=== PATIENT | female | born 1960 | race Caucasian/White ===

== ENCOUNTER 2024-03-29 21:49 | Emergency (ER) | payer SELFPAY ==
[2024-03-29] VITALS (9 sets, daily range): BP systolic 105–140; BP diastolic 55–73; PULSE 80–92; RESP 14–23; TEMP 36.3; O2SAT 99–100; BMI 26.4
--- NOTE | 2024-03-29 23:15 | PC.NURSE ---
Per EMS BG was 71 @ 2155. EMS had multiple attempts at IV placement with no success. Nursing staff continues to establish IV. BG checked upon arrival at 2200 with BG of 64. Pt given 1x apple juice by mouth. @ 2250 BG 63. IV placed and order obtained for IV dextrose, see OCT.
[2024-03-29 23:18] LABS: Add Manual Diff / Slide Review NO; Basophils Absolute Auto 0 /uL (0-100); Basophils Percent Auto 0.2 % (0-2); Eosinophils Absolute Auto 200 /uL (0-450); Eosinophils Percent Auto 1.1 % (2-4); Hematocrit 25.6 % (36-46); Hemoglobin 8.6 g/dL (12.0-16.0); Lymphocytes Absolute Auto 2200 /uL (1100-4500); Lymphocytes Percent Auto 13.6 % (25-40); Mean Corpuscular HGB Conc 33.5 % (30-36); Mean Corpuscular Volume 77.7 fL (80-100); Monocytes Absolute Auto 1500 /uL (0-900); Monocytes Percent Auto 9.2 % (3-14); Neutrophils Absolute Auto 12400 /uL (1500-7000); Neutrophils Percent Auto 75.9 % (50-75); Platelet Count 606 X10^3/uL (150-400); Red Blood Cell Count 3.29 X10^6/uL (4.0-5.2); Red Cell Distribution Width 15.8 % (11.6-14.8); White Blood Cell Count 16.3 X10^3/uL (4.5-11.0)
[2024-03-29] MEDS: DEXTROSE 50 % IN WATER 25 GM/50 ML SYRINGE IV (23:25)
[2024-03-29 23:31] LABS: Alanine Aminotransferase 17 IU/L (<35); Albumin 3.6 g/dL (3.5-5.0); Albumin Globulin Ratio 0.9 (1.0-2.8); Alkaline Phosphatase 131 U/L (38-126); Aspartate Aminotransferase 20 IU/L (14-36); BUN Creatinine Ratio 10.9 (6-22); Bilirubin Total 0.6 mg/dL (0.2-1.3); Blood Urea Nitrogen 14 mg/dL (7-17); Calcium 8.8 mg/dL (8.4-10.2); Carbon Dioxide 19 mmol/L (22-32); Chloride 97 mmol/L (98-107); Estimated Glomerular Filt Rate 47 mL/min (>60); Glucose 62 mg/dL (80-110); HEMOLYSIS < 15 (0-50); Sodium 128 mmol/L (137-145); Total Protein 7.6 g/dL (6.3-8.2)
[2024-03-29 23:44] LABS: Lactate (Lactic Acid) 1.2 mmol/L (0.7-2.1)
[2024-03-30] VITALS (12 sets, daily range): BP systolic 93–124; BP diastolic 53–63; PULSE 78–91; RESP 14–26; O2SAT 98–100
[2024-03-30 00:02] LABS: Thyroid Stimulating Hormone 0.719 uIU/mL (0.47-4.68)
--- NOTE | 2024-03-30 00:43 | ED_ITS ---
HPI - Weakness General Chief complaint: Weakness Stated complaint: gen weakness Time Seen by Provider: 03/29/24 22:16 Source: patient and EMS Mode of arrival: EMS History of Present Illness HPI Narrative: 64-year-old female recently released from [facility] admission she states for worsening kidney function, has new left-sided nephrostomy tube placed that she believes will be taken out in 2 weeks at , history of diabetes taking her oral medications, after recent hospital discharge has had low blood sugar readings and generalized weakness. No seizure activity. She denies diarrhea. She denies fevers or chills. She denies shortness of breath. She denies pain or redness or rash or dishcarge from the new left nephrostomy site. Denies increasing flank pain. Related Data Home Medications Medication Instructions Recorded Confirmed atorvastatin 20 mg tablet 20 mg PO QPM 03/29/24 03/29/24 fluoxetine 20 mg tablet 20 mg PO DAILY 03/29/24 03/29/24 glipizide 10 mg tablet, extended 20 mg PO QAM 03/29/24 03/29/24 release 24 hr levofloxacin 750 mg tablet 750 mg PO DAILY 03/29/24 03/29/24 metformin 1,000 mg tablet 1,000 mg PO BID 03/29/24 03/29/24 methocarbamol 500 mg tablet 500 mg PO 03/29/24 metronidazole 500 mg tablet 500 mg PO Q8H 03/29/24 03/29/24 pioglitazone 45 mg tablet 45 mg PO DAILY 03/29/24 03/29/24 Allergies Allergy/AdvReac Type Severity Reaction Status Date / Time No Known Drug Allergies Allergy Verified 03/29/24 23:28 Review of Systems Review of Systems Narrative: see HPI Patient History Social History Smoking Status: Never smoker Smoking Status: Never smoker Substance Use Type: does not use Exam Narrative Exam Narrative: GENERAL: Well-developed patient, in mild distress. HEAD: Atraumatic. Normocephalic. EYES: Pupils equal round and reactive. Extraocular motions intact. No scleral icterus. No injection or drainage. ENT: Nose without bleeding, purulent drainage. Throat without erythema, tonsillar hypertrophy or exudate. Airway patent. NECK: Trachea midline. Non tender CARDIOVASCULAR: Regular rate and rhythm without murmurs, gallops, or rubs. RESPIRATORY: Clear to auscultation. Breath sounds equal bilaterally. No wheezes, rales, or rhonchi. GASTROINTESTINAL: Abdomen soft, non-tender, nondistended. EXTREMITIES: No edema or joint tenderness. BACK: Nontender without deformity or crepitance. No flank tenderness. Left nephrostomy tube, left flank area skin exit site appears normal without redness or swelling or discharge. NEURO: AOx3. Nonfocal neuro exam SKIN: No rash or erythema of visible areas Initial Vital Signs Initial Vital Signs: Vital Signs Pulse Rate 88 03/29/24 21:54 Blood Pressure 125/73 03/29/24 21:54 Pulse Oximetry 100 03/29/24 21:54 Course Orders Ordered: Discontinued Medications Dextrose (Dextrose 25 % In Water 2.5 Gm/10 Ml Syringe) 2.5 gm IV NOW ONE Stop: 03/29/24 23:13 Last Admin: 03/29/24 23:37 Dose: Not Given Documented By: BIANCA Dextrose (Dextrose 50 % In Water 25 Gm/50 Ml Syringe) 12.5 gm IV NOW ONE Stop: 03/29/24 23:38 Last Admin: 03/29/24 23:25 Dose: 12.5 gm Documented By: BIANCA Vital Signs Vital signs: Vital Signs - 8 hr 03/29/24 21:54 03/29/24 21:54 03/29/24 22:00 Temperature Pulse Rate 88 90 Respiratory Rate Blood Pressure 125/73 Pulse Oximetry 100 100 Oxygen Delivery Method Room Air 03/29/24 22:00 03/29/24 22:03 03/29/24 22:30 Temperature 97.3 F L Pulse Rate 92 H 80 Respiratory Rate 19 17 Blood Pressure 126/62 125/73 Pulse Oximetry 100 99 Oxygen Delivery Method Room Air 03/29/24 22:30 03/29/24 23:00 03/29/24 23:24 Temperature Pulse Rate 90 84 Respiratory Rate 14 23 Blood Pressure 140/72 Pulse Oximetry 100 99 Oxygen Delivery Method Room Air 03/29/24 23:24 03/29/24 23:30 03/29/24 23:40 Temperature Pulse Rate 82 83 Respiratory Rate 17 18 Blood Pressure 112/56 L Pulse Oximetry 99 99 Oxygen Delivery Method Room Air Room Air 03/29/24 23:40 Temperature Pulse Rate Respiratory Rate Blood Pressure 105/55 L Pulse Oximetry Oxygen Delivery Method MDM - Weakness Lab Data Attestation: I reviewed the patient's lab results. 03/29/24 23:05 03/29/24 23:05 Labs: Lab Results 03/29/24 Range/Units 23:05 WBC 16.3 H (4.5-11.0) X10^3/uL RBC 3.29 L (4.0-5.2) X10^6/uL Hgb 8.6 L (12.0-16.0) g/dL Hct 25.6 L (36-46) % MCV 77.7 L (80-100) fL MCH 26.0 (26-34) PG MCHC 33.5 (30-36) % RDW 15.8 H (11.6-14.8) % Plt Count 606 H (150-400) X10^3/uL Neut % (Auto) 75.9 H (50-75) % Lymph % (Auto) 13.6 L (25-40) % [place] % (Auto) 9.2 (3-14) % Eos % (Auto) 1.1 L (2-4) % Baso % (Auto) 0.2 (0-2) % Neut # (Auto) 46768 H (2167-1446) /uL Lymph # (Auto) 2200 (4945-2185) /uL [place] # (Auto) 1500 H (0-900) /uL Eos # (Auto) 200 (0-450) /uL Baso # (Auto) 0 (0-100) /uL Sodium 128 L (137-145) mmol/L Potassium 4.0 (3.4-5.1) mmol/L Chloride 97 L (98-107) mmol/L Carbon Dioxide 19 L (22-32) mmol/L BUN 14 (7-17) mg/dL Creatinine 1.28 H (0.52-1.04) mg/dL Estimated GFR 47 L (>60) mL/min BUN/Creatinine Ratio 10.9 (6-22) Glucose 62 L (80-110) mg/dL Lactate 1.2 (0.7-2.1) mmol/L Calcium 8.8 (8.4-10.2) mg/dL Total Bilirubin 0.6 (0.2-1.3) mg/dL AST 20 (14-36) IU/L ALT 17 (<35) IU/L Alkaline Phosphatase 131 H (38-126) U/L Total Protein 7.6 (6.3-8.2) g/dL Albumin 3.6 (3.5-5.0) g/dL Globulin 4.0 (1.7-4.1) g/dL Albumin/Globulin Ratio 0.9 L (1.0-2.8) TSH 0.719 (0.47-4.68) uIU/mL Point of Care Testing Glucose POC 141 MDM Narrative Medical decision making narrative: 64yo female recently discharged from [facility] with new left nephrostomy to be pulled in 2 weeks, known diabetes, since discharge has generallized weakness and low blood sugars, decreased oral intake but taking her diabetes medications. Low blood sugar noted despite apple juice, IV D25 ampule ordered, other labs pending. WBC 16k noted, no fever, nephrostomy site looks good, without flank pain or cellutitis changes. Patient felt better, repeat glucose 140s, requests peanut butter sandwich Patien tolerate oral feed, wants to go home, discharged per patient request, staying with friends until follow-up, return precautions discussed Discharge Plan Departure Patient Disposition: Home Clinical Impression: Hypoglycemia, Hyponatremia, History of nephrostomy Instructions: DI for Hypoglycemia Activity Restrictions/Additional Instructions: Recent worsening kidney function, status post left-sided nephrostomy tube placement at [facility] in [place], awaiting possible removal in a couple of weeks, generalized weakness, low sugar noted today. IV dextrose was given in the emergency department, symptoms improved, glucose improved from the 60s up to the 140s, you were able to tolerate a peanut butter sandwich. You felt better and wanted to be discharged. You will be discharged in the company of your friends with whom you will be staying near term. Follow up with Urology another care services providers at [facility] as scheduled. Your sodium was low as well, not enough to warranted admission or specific treatment, but should be checked in follow up as well. Return earlier to this/nearest emergency department for any change worsening symptoms or any concerns prior Prescriptions: No Action levofloxacin 750 mg tablet 750 mg PO DAILY metronidazole 500 mg tablet 500 mg PO Q8H atorvastatin 20 mg tablet 20 mg PO QPM glipizide 10 mg tablet extended release 24hr 20 mg PO QAM methocarbamol 500 mg tablet 500 mg PO fluoxetine 20 mg Tablet 20 mg PO DAILY metformin 1,000 mg tablet 1,000 mg PO BID pioglitazone 45 mg tablet 45 mg PO DAILY Stand Alone Forms: Patient Portal/API
== END 2024-03-30 03:16 | disposition home or self-care (01) ==
PROVIDERS: Emergency Provider Emergency Medicine
DX: E16.2 Hypoglycemia, unspecified (principal); E87.1 Hypo-osmolality and hyponatremia; Z93.6 Other artificial openings of urinary tract status
CPT/HCPCS: 36415; 80053; 82962; 83605; 84443; 85025; 99284